=== PATIENT | male | born 1980 | race African-American/Black ===

== ENCOUNTER 2017-05-02 09:04 | Inpatient (IN) ==
[2017-05-01 15:34] LABS: Basophils % 0.6 % (0.0-0.8); Eosinophils # 0.3 10*3/uL (0.0-0.87); Eosinophils % 3.9 % (0.00-10.9); Hematocrit 33.7 VOL% (42.0-52.0); Hemoglobin 11.8 GM/DL (14.0-18.0); Immature Granulocytes % 0.4 %; Immature Granulocytes Absolute 0.03 #; Lymphocytes # 2.5 10*3/uL (1.4-4.0); Lymphocytes % 34.6 % (21.2-54.2); Mean Corpuscular Hemoglobin 33 PG (27-34); Mean Corpuscular Volume 94.9 FL (87-102); Mean Platelet Volume 8.5 FL (9.6-12.0); Monocytes # 0.5 10*3/uL (0.11-0.8); Monocytes % 6.7 % (1.7-12.7); Neutrophils # 3.9 10*3/uL (1.4-7.4); Neutrophils % 53.8 % (38.7-73.9); Platelet Count 289 T/CUMM (130-400); Red Blood Count 3.55 MC/CUMM (3.8-5.5); Red Cell Distribution Width 12.3 % (9.3-17.3); White Blood Count 7.2 T/CUMM (4-12)
[2017-05-01 16:17] LABS: Potassium 4.5 MMOL/L (3.5-5.1)
[~2017-05-02 09:04] MED LIST: ceFAZolin 2,000 MG in PREMIX 1 EACH IV ONE
[2017-05-02] MEDS ORDERED: FAMOTIDINE 20 MG TABLET PO ONE (10:15)
[2017-05-02] MEDS ORDERED: DIAZEPAM 5 MG TABLET PO ONE (10:15)
[2017-05-02] MEDS ORDERED: LACTATED RINGERS 1,000 ML IV SCH (10:30)
[2017-05-02] MEDS ORDERED: GENTAMICIN 80 MG/2 ML VIAL ONE (14:47)
[2017-05-02] MEDS ORDERED: ZALEPLON 5 MG CAPSULE PO PRN (15:25)
[2017-05-02] MEDS ORDERED: MAGNESIUM HYDROXIDE SUSP 30 ML UDCUP PO PRN (15:25)
[2017-05-02] MEDS ORDERED: diphenhydrAMINE CAP 25 MG CAPSULE PO PRN (15:25)
[2017-05-02] MEDS ORDERED: ONDANSETRON 4 MG/2 ML VIAL IV PRN ×2 (15:25→17:49)
[2017-05-02] MEDS ORDERED: HYDROmorphone 2 MG/1 ML VIAL IV PRN ×2 (15:25)
[2017-05-02] MEDS ORDERED: BACITRACIN OINT 0.9 GM PACK TOP ONE (16:34)
[2017-05-02] MEDS ORDERED: ROPIVACAINE 0.5% 30 ML VIAL ONE ×2 (17:02→17:13)
[2017-05-02] MEDS ORDERED: PROPOFOL 200 MG/20 ML VIAL IV ONE (17:03)
[2017-05-02] MEDS ORDERED: SEVOFLURANE 1 UNIT/15 MINUTE INH ONE (17:03)
[2017-05-02] MEDS ORDERED: DEXAMETHASONE 10 MG/1 ML VIAL ONE (17:04)
[2017-05-02] MEDS ORDERED: fentaNYL 100 MCG/2 ML VIAL ONE (17:04)
[2017-05-02] MEDS ORDERED: LACTATED RINGERS 1,000 ML IV ONE (17:04)
[2017-05-02] MEDS ORDERED: KETOROLAC 30 MG/1 ML VIAL ONE (17:04)
[2017-05-02] MEDS ORDERED: ONDANSETRON 4 MG/2 ML VIAL ONE ×2 (17:04→17:39)
[2017-05-02] MEDS ORDERED: MIDAZOLAM 2 MG/2 ML VIAL ONE (17:04)
[2017-05-02] MEDS ORDERED: HYDROmorphone 2 MG/1 ML VIAL ONE (17:39)
[2017-05-02] MEDS: HYDROmorphone 2 MG/1 ML VIAL IV PRN ×3 (17:42→17:52)
[2017-05-02] MEDS: KETOROLAC 30 MG/1 ML VIAL IV SCH ×2 (19:07→21:15)
[2017-05-02] MEDS ORDERED: INFLUENZA VIRUS VACCINE 0.5 ML SYRINGE IM ONE (19:25)
[2017-05-02] MEDS: DOCUSATE SODIUM 100 MG CAPSULE PO SCH (21:15)
[2017-05-02] MEDS: LACTATED RINGERS 1,000 ML IV SCH (21:15)
[2017-05-02] MEDS: ceFAZolin 2,000 MG in PREMIX 1 EACH IV SCH (21:36)
[2017-05-03] MEDS: KETOROLAC 30 MG/1 ML VIAL IV SCH ×2 (02:49→09:51)
[2017-05-03 04:36] LABS: Basophils % 0.2 % (0.0-0.8); Eosinophils % 0.1 % (0.00-10.9); Hematocrit 33.6 VOL% (42.0-52.0); Hemoglobin 11.7 GM/DL (14.0-18.0); Immature Granulocytes % 0.5 %; Immature Granulocytes Absolute 0.04 #; Lymphocytes # 1.6 10*3/uL (1.4-4.0); Lymphocytes % 19.4 % (21.2-54.2); Mean Corpuscular HGB Conc 34.8 GM/DL (32-36); Mean Corpuscular Hemoglobin 33 PG (27-34); Mean Corpuscular Volume 94.4 FL (87-102); Mean Platelet Volume 9.8 FL (9.6-12.0); Monocytes # 0.7 10*3/uL (0.11-0.8); Monocytes % 8.3 % (1.7-12.7); Neutrophils % 71.5 % (38.7-73.9); Platelet Count 251 T/CUMM (130-400); Red Blood Count 3.56 MC/CUMM (3.8-5.5); Red Cell Distribution Width 12.2 % (9.3-17.3); White Blood Count 8.3 T/CUMM (4-12)
[2017-05-03] MEDS: ceFAZolin 2,000 MG in PREMIX 1 EACH IV SCH (04:41)
[2017-05-03] MEDS: LACTATED RINGERS 1,000 ML IV SCH (04:43)
[2017-05-03 04:58] LABS: Calcium 8.8 MG/DL (8.5-10.1); Osmolality,Calculated 273.8 MOS/KG (273-304); Potassium 4.5 MMOL/L (3.5-5.1)
[2017-05-03] MEDS: DOCUSATE SODIUM 100 MG CAPSULE PO SCH (08:01)
[2017-05-03] MEDS ORDERED: FONDAPARINUX 2.5 MG/0.5 ML SYRINGE SUBCUT SCH (09:28)
[2017-05-03 11:35] VITALS: BP 154/73
== END 2017-05-03 12:45 | disposition home or self-care (01) | DRG 494 ==
LOC: N.OR 09:04 → N.SDSINP 09:37 → N.3E 15:25 → N.OR 05-03 12:48 → N.3E 05-03 16:13
PROVIDERS: ADMIT Orthopaedic Surgery; ATTEND Orthopaedic Surgery